=== PATIENT | female | born 1985 | race Caucasian/White ===

== ENCOUNTER 2023-11-02 06:57 | Emergency (ER) | payer BC ==
[2023-11-02] MEDS ORDERED: LIDOCAINE 2% W/EPI 1:200,000 MPF 20 ML VIAL IM ONE (07:28)
[2023-11-02] MEDS ORDERED: TDAP (DIPHTH,PERTUSS(ACELL),TET VAC) 0.5 ML VIAL IMVAC ONE (07:29)
[2023-11-02] MEDS ORDERED: CEPHALEXIN 250 MG CAP ONE (07:29)
--- NOTE | 2023-11-02 07:44 | EDPHYS ---
Physician Documentation [facility] Name: Poornima Elkins Age: 37 yrs Sex: Female : 1985 Arrival Date: 11/02/2023 Time: 06:57 Bed 6 Private MD: [facility] Physician Eric Garibay HPI: 11/01 07:33 This 37 yrs old Female presents to ER via Ambulatory with complaints of siddhartha Finger laceration. 07:33 The patient or guardian reports injury, a laceration. The complaints affect the dorsal siddhartha aspect of middle phalanx of left index finger. Context: The problem was sustained at home, resulted from CUT WITH KNIFE. Onset: The symptoms/episode began/occurred this morning. Modifying factors: The symptoms are alleviated by holding still, the symptoms are aggravated by movement. Associated signs and symptoms: The patient has no apparent associated signs or symptoms. Severity of symptoms: At their worst the symptoms were moderate, in the emergency department the symptoms are unchanged. The patient has not experienced similar symptoms in the past. 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 - Infectious Disease History:: Denies. - Social history:: Smoking status: Patient reports the use of cigarette tobacco products, Patient uses alcohol. - Family history:: not pertinent. ROS: 07:33 Constitutional: Negative for fever, chills, and weight loss, Eyes: Negative for injury, siddhartha pain, redness, and discharge, ENT: Negative for injury, pain, and discharge, Neck: Negative for injury, pain, and swelling, Cardiovascular: Negative for chest pain, palpitations, and edema, Respiratory: Negative for shortness of breath, cough, wheezing, and pleuritic chest pain, Abdomen/GI: Negative for abdominal pain, nausea, vomiting, diarrhea, and constipation, Back: Negative for injury and pain, : Negative for injury, bleeding, discharge, and swelling, Skin: Negative for injury, rash, and discoloration, Neuro: Negative for headache, weakness, numbness, tingling, and seizure, Psych: Negative for depression, anxiety, suicide ideation, homicidal ideation, and hallucinations, Allergy/Immunology: Negative for hives, rash, and allergies, Endocrine: Negative for neck swelling, polydipsia, polyuria, polyphagia, and marked weight changes, Hematologic/Lymphatic: Negative for swollen nodes, abnormal bleeding, and unusual bruising, 07:33 MS/extremity: Positive for decreased range of motion, laceration, pain, swelling, tenderness, Exam: 07:33 Constitutional: This is a well developed, well nourished patient who is awake, alert, siddhartha and in no acute distress. Head/Face: Normocephalic, atraumatic. Eyes: Pupils equal round and reactive to light, extra-ocular motions intact. Lids and lashes normal. Conjunctiva and sclera are non-icteric and not injected. Cornea within normal limits. Periorbital areas with no swelling, redness, or edema. ENT: Nares patent. No nasal discharge, no septal abnormalities noted. Tympanic membranes are normal and external auditory canals are clear. Oropharynx with no redness, swelling, or masses, exudates, or evidence of obstruction, uvula midline. Mucous membranes moist. Neck: Trachea midline, no thyromegaly or masses palpated, and no cervical lymphadenopathy. Supple, full range of motion without nuchal rigidity, or vertebral point tenderness. No Meningismus. Chest/axilla: Normal chest wall appearance and motion. Nontender with no deformity. No lesions are appreciated. Cardiovascular: Regular rate and rhythm with a normal S1 and S2. No gallops, murmurs, or rubs. Normal PMI, no JVD. No pulse deficits. Respiratory: Lungs have equal breath sounds bilaterally, clear to auscultation and percussion. No rales, rhonchi or wheezes noted. No increased work of breathing, no retractions or nasal flaring. Abdomen/GI: Soft, non-tender, with normal bowel sounds. No distension or tympany. No guarding or rebound. No evidence of tenderness throughout. Back: No spinal tenderness. No costovertebral tenderness. Full range of motion. Skin: Warm, dry with normal turgor. Normal color with no rashes, no lesions, and no evidence of cellulitis. Neuro: Awake and alert, GCS 15, oriented to person, place, time, and situation. Cranial nerves II-XII grossly intact. Motor strength 5/5 in all extremities. Sensory grossly intact. Cerebellar exam normal. Normal gait. Psych: Awake, alert, with orientation to person, place and time. Behavior, mood, and affect are within normal limits. 07:33 Musculoskeletal/extremity: Extremities: grossly normal except: noted in the dorsal aspect of middle phalanx of left index finger: laceration, ROM: limited active range of motion due to pain, limited passive range of motion due to pain, Circulation is intact in all extremities. Sensation intact. Compartment Syndrome exam of affected extremity: is normal. no numbness, no tingling, no sensation deficit, no palor, no weak pulses, severe pain, Weight bearing: able to fully bear weight, without difficulty, Tendon exam: specific tendon testing normal through active and passive range of motion Vital Signs: 07:05 BP 130 / 98; Pulse 112; Resp 16; Temp 97.5; Pulse Ox 100% on R/A; Weight 81.65 kg; iw Height 5 ft. 6 in. ; Pain 4/10; 08:38 BP 131 / 71; Pulse 81; Resp 16; Temp 97.6; Pulse Ox 100% ; Pain 0/10; ll1 07:05 Body Mass Index 29.05 (81.65 kg, 167.64 cm) iw 07:05 Pain Scale: Adult iw 08:38 Pain Scale: Adult ll1 Laceration: 07:52 Wound Repair of 2.5cm ( 1.0in ) subcutaneous laceration to dorsal aspect of middle siddhartha phalanx of left index finger. Distal neuro/vascular/tendon intact. Anesthesia: Local anesthetic administered with 4 mls of 1% lidocaine w/ Epi. Wound prep: Moderate cleansing with betadine by il. Skin closed with 3 5-0 Prolene using vertical mattress sutures and sterile technique. Dressed with Neosporin. Patient tolerated well. MDM: 07:04 Patient medically screened. [facility] 07:39 Differential diagnosis: contusion, abrasion, tendonitis. Data reviewed: vital signs, [facility] nurses notes. Consideration of Admission/Observation Escalation of care including admission/observation considered. I considered the following discharge prescriptions or medication management in the emergency department Medications were administered in the Emergency Department. See MAR. Test considered but Not performed: Labs: NO LABS, NO X RAY. Historians other than the Patient: PATIENT WELL INFORMED. Care significantly affected by the following chronic conditions: NONE. Counseling: I had a detailed discussion with the patient and/or guardian regarding the historical points, exam findings, and any diagnostic results supporting the discharge/admit diagnosis, the need for outpatient follow up, for definitive care, a hand specialist, a orthopedic surgeon. 11/01 08:05 Order name: Hand Left 3 View XRAY em1 11/01 07:23 Order name: Dressing - Wound; Complete Time: 08:38 siddhartha 11/01 07:23 Order name: Gloves, Sterile; Complete Time: 07:51 siddhartha 11/01 07:23 Order name: Prolene, Sutures; Complete Time: 08:37 siddhartha 11/01 07:23 Order name: Setup Suture Tray; Complete Time: 07:50 siddhartha Administered Medications: 07:34 Drug: Cephalexin PO 500 mg PO once Route: PO; ll1 08:02 Follow up: Response: No adverse reaction ll1 07:35 Drug: Tetanus Toxoid,Adsorbed IM 0.5 ml IM once; Provide Vaccine Information Statement ll1 (VIS). 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 Garibay.} Volume: 20 ml; Route: Infiltration; 08:38 Follow up: Response: No adverse reaction ll1 Disposition Summary: 11/02/23 07:43 Discharge Ordered Notes: Location: Home siddhartha Problem: new siddhartha Symptoms: have improved siddhartha Condition: Stable siddhartha Diagnosis - Laceration without foreign body of left hand, initial encounter - INDEX FINGER siddhartha - Laceration of extensor muscle, fascia and tendon of left index finger at wrist and [facility] hand level Followup: siddhartha - With: Private Physician - When: 2 - 3 days - Reason: Recheck today's complaints, Continuance of care, Re-evaluation by your physician Followup: siddhartha - With: Rivera Martinez MD - When: 2 - 3 days - Reason: Recheck today's complaints, Re-evaluation by your physician Discharge Instructions: - Discharge Summary Sheet siddhartha - Laceration Care, Adult siddhartha - Laceration Care, Adult, Dwud-de-Wwvn [facility] Forms: - Medication Reconciliation Form [facility] - Thank You Letter siddhartha - Antibiotic Education [facility] - Prescription Opioid Use siddhartha - Patient Portal Instructions siddhartha - Leadership Thank You Letter siddhartha - Work release form ll1 Prescriptions: - Cephalexin 500 mg Oral Capsule - take 1 capsule ORAL route every 6 hours for 10 days; 40 capsule; Refills: 0, [facility] Product Selection Permitted - Ibuprofen 600 mg Oral Tablet - take 1 tablet ORAL route every 6 hours As needed take with food; 30 tablet; [facility] Refills: 0, Product Selection Permitted Signatures: Dispatcher [employer] Eric Campbell MD MD cha Williams, Irene, RN RN Stef Cates RN RN ll1
--- NOTE | 2023-11-02 07:44 | ER ---
Nurse's Notes [facility] Name: Poornima Elkins Age: 37 yrs Sex: Female : 1985 Arrival Date: 11/02/2023 Time: 06:57 Bed 6 Private MD: Diagnosis: Laceration without foreign body of left hand, initial encounter-INDEX FINGER;Laceration of extensor muscle, fascia and tendon of left index finger at wrist and hand level Presentation: 11/01 07:05 Chief complaint: Patient states: cut her left index finger with a sharp kitchen knife, iw it happened between 1 and 3 am. Coronavirus screen: At this time, the client does not indicate any symptoms associated with coronavirus-19. Ebola Screen: Patient negative for fever greater than or equal to 101.5 degrees Fahrenheit, and additional compatible Ebola Virus Disease symptoms Patient denies exposure to infectious person. Patient denies travel to an Ebola-affected area in the 21 days before illness onset. No symptoms or risks identified at this time. Initial Sepsis Screen: Does the patient meet any 2 criteria? No. Patient's initial sepsis screen is negative. Does the patient have a suspected source of infection? No. Patient's initial sepsis screen is negative. Risk Assessment: Do you want to hurt yourself or someone else? Patient reports no desire to harm self or others. Onset of symptoms was November 02, 2023. 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 LMP N/A - control method, Not 1 Historical: - Allergies: 07:07 No Known Allergies; iw - Home Meds: 07:07 None [Active]; iw - PMHx: 07:07 None; iw - PSHx: 07:07 tubal; Historical Immunization: - Administered Vaccines 08:02 Lidocaine-Epinephrine Infiltration -1%: (1:100,000) 4 ml [facility] 07:35 Tetanus Toxoid,Adsorbed IM 0.5 ml 1 Program Checker: [employer]; Exp: MonAug 05 2025; Lot #: [id number]; Series: 1 of 1; Patient Consent: Obtained; Date/Time: ; Source Name: Poornima Elkins; Source Relationship: Self; Address Information[place] [facility] [address] [address], [facility] [address]; ; Education: Provided; VIS Presented Date: ; VIS Publication: Tetanus/Diphtheria (Td) VIS 09/16/2014 (historic) 07:34 Cephalexin PO 500 mg ll1 - Immunization history:: Last tetanus immunization: up to date. - Infectious Disease History:: Denies. - Social history:: Smoking status: Patient reports the use of cigarette tobacco products, Patient uses alcohol. - Family history:: not pertinent. Screenin:24 [facility] ED Fall Risk Assessment (Adult) History of falling in the last 3 months, ll1 including since admission No falls in past 3 months (0 pts) Confusion or Disorientation No (0 pts) Intoxicated or Sedated No (0 pts) Impaired Gait No (0 pts) Mobility Assist Device Used No (0 pt) Altered Elimination No (0 pt) Score/Fall Risk Level 0 - 2 = Low Risk Oriented to surroundings, Hourly rounding (assess needs \T\ fall precautionary measures) done. Abuse screen: Denies threats or abuse. Nutritional screening: No deficits noted. Tuberculosis screening: No symptoms or risk factors identified. Assessment: 07:23 General: Appears uncomfortable, Behavior is calm, cooperative, appropriate for age. ll1 Pain: Complains of pain in left hand Quality of pain is described as aching. Derm: Reports laceration L hand 2nd digit bleeding controlled. Musculoskeletal: Circulation, motion, and sensation intact. Capillary refill < 3 seconds. 08:02 Reassessment: No changes from previously documented assessment. Dr. Garibay and ER ll1 tech at for suture repair. 08:38 Musculoskeletal: Circulation, motion, and sensation intact. Capillary refill < 3 ll1 seconds. Vital Signs: 07:05 BP 130 / 98; Pulse 112; Resp 16; Temp 97.5; Pulse Ox 100% on R/A; Weight 81.65 kg; iw Height 5 ft. 6 in. ; Pain 4/10; 08:38 BP 131 / 71; Pulse 81; Resp 16; Temp 97.6; Pulse Ox 100% ; Pain 0/10; ll1 07:05 Body Mass Index 29.05 (81.65 kg, 167.64 cm) iw 07:05 Pain Scale: Adult iw 08:38 Pain Scale: Adult ll1 ED Course: 06:59 Patient arrived in ED. mr 07:03 Eric Garibay MD is Attending Physician. siddhartha 07:06 Triage completed. iw 07:07 Arm band placed on. iw 07:17 Arely Mohan, RN is Primary Nurse. ph 07:41 Rivera Martinez MD is Referral Physician. siddhartha 08:21 Hand Left 3 View XRAY In Process Unspecified. EDMS 08:23 Assist provider with laceration repair on left hand Performed by Eric Garibay MD [email or web address] Patient tolerated well. 08:38 Dressings: Kerlix X 1; left hand non-adherent dressing x 1 left hand. ll1 08:39 Patient has correct armband on for positive identification. Bed in low position. Call ll1 light in reach. Provided Education on: Finish all prescribed antibiotics. . 08:39 Patient did not have IV access during this emergency room visit. ll1 Administered Medications: 07:34 Drug: Cephalexin PO 500 mg PO once Route: PO; ll1 08:02 Follow up: Response: No adverse reaction ll1 07:35 Drug: Tetanus Toxoid,Adsorbed IM 0.5 ml IM once; Provide Vaccine Information Statement ll1 (VIS). 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 Garibay.} Volume: 20 ml; Route: Infiltration; 08:38 Follow up: Response: No adverse reaction ll1 Medication: 07:24 VIS not applicable for this client. ll1 Outcome: 07:43 Discharge ordered by siddhartha 08:39 Discharged to home ambulatory, ll1 08:39 Condition: stable 08:39 Discharge instructions given to patient, Instructed on discharge instructions, follow up and referral plans. medication usage, wound care, Demonstrated understanding of instructions, follow-up care, medications, wound care, Prescriptions given X 2, 08:40 Patient left the ED. ll1 Signatures: Dispatcher [employer] EDMS Eric Garibay MD MD cha Rivera, Hamida, [facility] mr Barbara Cortes, PATRICIA RN iw Arely Mohan RN RN Stef Redmond RN RN 1 August Ochoa [email or web address] Corrections: (The following items were deleted from the chart) 07:07 07:05 Chief complaint: Patient states: cut her left index finger with a sharp kitchen iw knife iw 07:08 07:05 Resp 16bpm; Temp 97.5F; iw iw
--- NOTE | 2023-11-02 08:25 | RAD REPORT ---
EXAM DESCRIPTION: RAD - Hand Left 3 View - 11/02/2023 8:19 am CLINICAL HISTORY: Laceration COMPARISON: No comparisons FINDINGS/IMPRESSION: No acute fracture. No malalignment. No significant focal degenerative changes. No radiopaque foreign body.
[2023-11-02 10:09] VITALS: BP 131/71; TEMP 97.6; O2SAT 100
== END 2023-11-02 08:40 | disposition home or self-care (01) ==
LOC: ER 06:57
PROC: 0HQGXZZ Repair Left Hand Skin, External Approach (ICD-10-PCS; principal; 2023-11-02)
DX: S61.211A Laceration without foreign body of left index finger without damage to nail, initial encounter (principal); S66.321A Laceration of extensor muscle, fascia and tendon of left index finger at wrist and hand level, initial encounter; Z23 Encounter for immunization
CPT/HCPCS: 90471; 99284